=== PATIENT | female | born 1975 | race Caucasian/White ===

== ENCOUNTER 2020-09-05 14:58 | Emergency (ER) | payer MEDICAID ==
[~2020-09-05] VITALS: Ht 154.9 cm; Wt 75.3 kg
[2020-09-05 15:07] VITALS: BP 137/87; Ht 154.9 cm; Wt 75.3 kg
== END 2020-09-05 15:56 | disposition home or self-care (01) ==
LOC: ED 14:58
DX: R10.9 Unspecified abdominal pain (principal); R31.9 Hematuria, unspecified; R11.0 Nausea; R30.0 Dysuria; I10 Essential (primary) hypertension